=== PATIENT | female | born 1960 | race Caucasian/White ===

== ENCOUNTER 2018-03-11 17:55 | Emergency (ER) | payer OTHER ==
[2018-03-11] MEDS ORDERED: Azithromycin 250 MG Tab PO ONE (18:30)
[2018-03-11] MEDS ORDERED: Dexamethasone 4 MG Tab PO ONE (18:30)
--- NOTE | 2018-03-11 18:36 | EDM.PDOC ---
Scribed by Daniela Nava 03/11/18 1836 for Yovanny Lopez MD ED HPI GENERAL MEDICAL PROBLEM - General Chief Complaint: ENT Problem Stated Complaint: STREP THROAT [id number] Time Seen by Provider: 03/11/18 18:24 Source of Information: Reports: Patient, RN, RN Notes Reviewed History Limitations: Reports: No Limitations - History of Present Illness INITIAL COMMENTS - FREE TEXT/NARRATIVE: Patient presents to ER with complaint of 2 days duration of sore throat, fever, chills and generalized body aches. Denies nausea, vomiting, cough or abdominal pain. Has been exposed to multiple sick children at school. She is uncertain if any of them have had confirmed strep. Onset Date: 03/09/18 Duration: Constant Location: Reports: Other (throat) Quality: Reports: Ache Severity: Moderate Improves with: Reports: None Worsens with: Reports: None Associated Symptoms: Reports: No Other Symptoms Throat Pain Score (Numeric/FACES): 8 - Related Data Allergies Allergy/AdvReac Type Severity Reaction Status Date / Time No Known Allergies Allergy Verified 03/11/18 18:01 Home Meds: Home Meds . [No Known Home Meds] 02/05/18 [History] Past Medical History - Past Health History Medical/Surgical History: Denies Medical/Surgical History - Past Surgical History Neurological Surgical History: Reports: C-Spine Social & Family History - Tobacco Use Smoking Status *Q: Never Smoker Second Hand Smoke Exposure: No - Recreational Drug Use Recreational Drug Use: No ED ROS ENT - Review of Systems Review Of Systems: ROS reveals no pertinent complaints other than HPI. ED EXAM, ENT - Physical Exam Exam: See Below Exam Limited By: No Limitations General Appearance: Alert, WD/WN, No Apparent Distress Eye Exam: Bilateral Eye: Normal Inspection Ears: Normal External Exam, Normal Canal, Hearing Grossly Normal, Normal TMs Nose: Normal Inspection, Normal Mucousa, No Blood Mouth/Throat: Normal Gums, Normal Lips, Normal Teeth, Pharyngeal Erythema, Throat Pain, Tonsillar Erythema, Tonsillar Swelling (right greater than left). No: Peritonsillar Mass Head: Atraumatic, Normocephalic Neck: Other (cervical lymphadenopathy right greater than left. No nuchal rigidity.) Respiratory/Chest: No Respiratory Distress, Lungs Clear, Normal Breath Sounds, No Accessory Muscle Use Cardiovascular: Normal Peripheral Pulses, Regular Rate, Rhythm, No Edema, No Gallop, No JVD, No Murmur, No Rub GI/Abdominal: Soft, Non-Tender (Female) Exam: Deferred Rectal (Female) Exam: Deferred Back: Normal Inspection, Full Range of Motion Extremities: Normal Inspection. No: Joint Swelling Neurological: Alert, Oriented, CN II-XII Intact, Normal Cognition, Normal Gait, No Motor/Sensory Deficits Psychiatric: Normal Affect, Normal Mood Skin: Warm, Dry, Intact, Normal Color, No Rash Course - Vital Signs Last Recorded V/S: Last Vital Signs Temp 37.1 C 03/11/18 17:58 Pulse 86 03/11/18 17:58 Resp 18 03/11/18 17:58 BP 163/92 H 03/11/18 17:58 Pulse Ox 95 03/11/18 17:58 - Orders/Labs/Meds Orders: Active Orders 24 hr Category Date Time Status CULTURE STREP A CONFIRMATION [RM] Stat Lab 03/11/18 17:59 Results STREP SCRN A RAPID W CULT CONF [RM] Stat Lab 03/11/18 17:59 Results Labs: Rapid strep: Negative. Meds: Medications Discontinued Medications Generic Name Dose Route Start Last Admin Trade Name Freq PRN Reason Stop Dose Admin Azithromycin 500 mg 03/11/18 18:30 Zithromax PO 03/11/18 18:31 ONETIME ONE Dexamethasone 8 mg 03/11/18 18:30 Dexamethasone PO 03/11/18 18:31 ONETIME ONE Departure - Departure Time of Disposition: 18:30 Disposition: Home, Self-Care 01 Condition: Good Clinical Impression: Tonsillitis Pharyngitis Qualifiers: Pharyngitis/tonsillitis etiology: unspecified etiology Qualified Code(s): J02.9 - Acute pharyngitis, unspecified - Discharge Information Instructions: Tonsillitis, [id number], Pharyngitis, [id number] Forms: ED Department Discharge Additional Instructions: RX: Zithromax 500mg. RX: Prednisone 20mg. Frequent salt water gargles until improved. Follow up in clinic in 3 to 4 days if not improved. - My Orders Last 24 Hours: My Active Orders 03/11/18 17:59 CULTURE STREP A CONFIRMATION [RM] Stat STREP SCRN A RAPID W CULT CONF [RM] Stat - Assessment/Plan Last 24 Hours: My Active Orders 03/11/18 17:59 CULTURE STREP A CONFIRMATION [RM] Stat STREP SCRN A RAPID W CULT CONF [RM] Stat I have read and agree with the documentation that has been completed regarding this visit. By signing this record, I attest that the documentation was completed in my physical presence and is an accurate record of the encounter.
== END 2018-03-11 18:40 | disposition home or self-care (01) ==
LOC: DL.ED 17:55
DX: J03.90 Acute tonsillitis, unspecified (principal)
CPT/HCPCS: 87081; 87430; 99283; A9270; J8540

== ENCOUNTER → 2018-10-17 | Outpatient (CLI) | payer BC ==
[2018-10-17 11:10] LABS: ANION GAP 14.5; CHLORIDE,CL 100 mmol/L (101-111); SODIUM,NA 137 mmol/L (135-145)
== END ==
LOC: DL.CLIN 08:00
PROVIDERS: ATTEND Nurse Practitioner
DX: Z00.00 Encounter for general adult medical examination without abnormal findings (principal); B35.1 Tinea unguium
CPT/HCPCS: 80053; 80061

== ENCOUNTER 2021-12-29 05:55 | Day surgery (SDC) | payer BC ==
[~2021-12-29 05:55] MED LIST: Midazolam 1 MG/ML 2 ML SDV ONE; Sodium Chloride 0.9% 10 ML Syringe FLUSH PRN; Sodium Chloride 0.9% 10 ML Syringe FLUSH SCH; fentaNYL 100 MCG/2 ML SDV ONE
[2021-12-29] MEDS ORDERED: fentaNYL 100 MCG/2 ML SDV IV ONE (05:56)
[2021-12-29] MEDS ORDERED: Midazolam 1 MG/ML 2 ML SDV IV ONE (05:56)
[2021-12-29] MEDS: Dextrose 5%-0.45% NaCl 1,000 ML IV SCH (06:39)
[2021-12-29] MEDS: fentaNYL 100 MCG/2 ML SDV IV ONE ×2 (06:55)
[2021-12-29] MEDS: Midazolam 1 MG/ML 2 ML SDV IV ONE ×6 (06:56→07:06)
== END 2021-12-29 09:25 | disposition home or self-care (01) ==
LOC: DL.ENDO 05:55
PROVIDERS: ATTEND Internal Medicine Gastroenterology
DX: Z12.11 Encounter for screening for malignant neoplasm of colon (principal); K63.89 Other specified diseases of intestine; B35.1 Tinea unguium; Z01.812 Encounter for preprocedural laboratory examination; Z20.822 Contact with and (suspected) exposure to COVID-19; Z98.890 Other specified postprocedural states
CPT/HCPCS: 45380; 87635; J2250; J3010; J7042; U0002